=== PATIENT | male | born 1980 | race Caucasian/White ===

== ENCOUNTER 2022-01-22 18:10 | Observation (INO) ==
--- NOTE | 2022-01-22 18:35 | ED.PDOC ---
General <FRANCHESCA ADAMS MD - Last Filed: 01/22/22 18:35> ED Provider: Dr. FRANCHESCA BHANDARI Chief Complaint: Abdominal Pain Stated Complaint: im hurting Time Seen by Provider: 01/22/22 18:33 Mode of Arrival: Walk-In Information Source: Patient and Family Exam Limitations: No limitations Primary Care Provider: NANO FLOREZ Nursing and Triage Documentation Reviewed and Agree: Yes Does patient meet sepsis criteria?: No System Inflammatory Response Syndrome: Not Applicable Sepsis Protocol: For patient's 13 years and over: Temp is 96.8 and below OR 101 and greater Pulse >90 BPM Resp >20/minute Acutely Altered Mental Status Are patient's symptoms suggestive of a new infection, such as: -Pneumonia -Skin, Soft Tissue -Endocarditis -UTI -Bone, Joint Infection -Implantable Device -Acute Abdominal Infection -Wound Infection -Meningitis -Blood Stream Catheter Infection -Unknown GI Complaint Exam <FRANCHESCA ADAMS MD - Last Filed: 01/22/22 18:35> Abdominal Pain Complaint/Exam Onset: Gradual Duration: several hours Symptoms Are: Still present Timing: Constant Initial Severity: Mild Current Severity: Moderate Location of Pain: Diffuse Radiates To: Reports Flank Character: Reports Dull, Aching and Cramping Aggravating: Reports None Alleviating: Reports None Associated Signs and Symptoms: Reports Back pain and Constipation Abdominal Findings: Present None Differential Diagnoses: Constipation, Diverticulitis and Pancreatitis Quality Indicator For Non-Traumatic Chest Pain/Syncope: EKG Performed Review of Systems <FRANCHESCA ADAMS MD - Last Filed: 01/22/22 18:35> Review Of Systems Constitutional: Reports No symptoms Eyes: Reports No symptoms Ears, Nose, Mouth, Throat: Reports No symptoms Respiratory: Reports No symptoms Cardiac: Reports No symptoms GI: Reports Abdominal pain : Reports No symptoms Musculoskeletal: Reports No symptoms Skin: Reports No symptoms Neurological: Reports No symptoms Endocrine: Reports No symptoms Hematologic/Lymphatic: Reports No symptoms All Other Systems: Reviewed and Negative PFSH <FRANCHESCA ADAMS MD - Last Filed: 01/22/22 18:35> Medical History (Updated 01/23/22 @ 00:22 by ALLY LOZA RN) Hemorrhoids with complication Kidney calculus Family History (Updated 01/23/22 @ 00:26 by ALLY LOZA RN) FATHER Diabetes CAD (coronary artery disease) CHF (congestive heart failure) UNCLE CAD (coronary artery disease) Mother Cancer Social History (Updated 01/23/22 @ 00:19 by ALLY LOZA RN) Smoking and tobacco status: Current some day smoker Tobacco: How many years used: 25 Quit status: considering quitting Surgical History (Updated 01/23/22 @ 00:22 by ALLY LOZA RN) History of exploratory laparotomy History of hemorrhoidectomy Physical Exam <FRANCHESCA ADAMS MD - Last Filed: 01/22/22 18:35> Physical Exam Appearance: Reports Well-appearing Ill-appearing: Not Applicable Pain Distress: Not Applicable Eyes: Reports DYLAN, EOMI and Conjunctiva clear ENT: Reports Ears normal, Nose normal and Oropharynx normal Neck: Supple Respiratory: Reports Airway patent, Breath sounds clear and Breath sounds equal Cardiovascular: Reports RRR, Pulses normal and No rub GI/: Reports Soft, Nontender and No masses Musculoskeletal: Reports Normal strength, ROM intact and No edema Skin: Reports Warm, Dry and Normal color Neurological: Reports Sensation intact, Motor intact, Reflexes intact, Cranial nerves intact, Alert and Oriented Psychiatric: Reports Affect appropriate and Mood appropriate <KEYSHAWN LATHAM - Last Filed: 01/23/22 04:26> EKG Interpretation Time of EKG #1: 19:25 Rate: Normal Rhythm: Sinus Ectopy: None [place]: NL ST Segment: Other Interpretation: t wave inversion II and AVF / initial trop neg / no CP Time of EKG #2: 21:48 Rate: Normal Rhythm: Sinus Ectopy: None [place]: NL ST Segment: Other EKG Interpretation: T wave inversion III and avf consider II /second trop neg / no cp / no pr <KEYSHAWN LATHAM - Last Filed: 01/23/22 04:26> Critical Care Note Total Critical Care Time (mins): 20 Course <FRANCHESCA ADAMS MD - Last Filed: 01/22/22 18:35> Course Hematology/Chemistry: 01/22/22 18:46 01/22/22 18:46 Orders, Labs, Meds: Lab Review 01/22/22 01/22/22 01/22/22 18:46 18:46 18:50 WBC 12.98 H RBC 4.99 Hgb 13.8 L Hct 41.8 L MCV 83.8 MCH 27.7 MCHC 33.0 RDW Coeff of Fanta 13.2 Plt Count 250 Immature Gran % (Auto) 0.3 Neut % (Auto) 64.8 Lymph % (Auto) 23.9 [place] % (Auto) 7.3 Eos % (Auto) 3.0 Baso % (Auto) 0.7 Neut # (Auto) 8.4 H Lymph # (Auto) 3.1 [place] # (Auto) 1.0 Eos # (Auto) 0.4 Baso # (Auto) 0.1 Immature Gran # (Auto) 0.0 ESR 9 Sodium 141.0 Potassium 3.78 Chloride 107.2 H Carbon Dioxide 20.3 L Anion Gap 17.28 BUN 12.4 Creatinine 1.12 H Estimated GFR (MDRD) 72.00 BUN/Creatinine Ratio 11.07 Glucose 99.9 Calcium 9.58 Total Bilirubin 0.48 AST 32.5 ALT 20.9 Alkaline Phosphatase 79.3 Troponin I < 0.012 Total Protein 8.15 Albumin 5.11 H Globulin 3.04 Albumin/Globulin Ratio 1.68 Amylase 68.8 Lipase 51.5 Urine Color Yellow Urine Clarity Clear Urine pH 5.5 Ur Specific [place] >=1.030 Urine Protein Negative Urine Glucose (UA) Negative Urine Ketones Negative Urine Blood 2+ H Urine Nitrite Negative Urine Bilirubin Negative Urine Urobilinogen 0.2 Ur Leukocyte Esterase Negative Urine Microscopic RBC 5-10 Ur Squamous Epith Cells Not present Urine Opiates Screen Ur Oxycodone Screen Urine Methadone Screen Ur Propoxyphene Screen Ur Barbiturates Screen U Tricyclic Antidepress Ur Phencyclidine Scrn Ur Amphetamine Screen U Methamphetamines Scrn U Benzodiazepines Scrn Urine Cocaine Screen U Cannabinoids Screen Adenovirus (PCR) B. pertussis DNA (PCR) B.parapertussis DNA PCR C. pneumoniae DNA (PCR) Coronavirus OC43 (PCR) Coronavirus HKU1 (PCR) Coronavirus 229E (PCR) Coronavirus NL63 (PCR) Human Metapneumovir PCR Influenza Type A (PCR) Influenza B (RT-PCR) M. pneumoniae (PCR) Parainfluenza 1 (PCR) Parainfluenza 2 (PCR) Parainfluenza 3 (PCR) Parainfluenza 4 (PCR) RSV (PCR) Entero/Rhino (PCR) SARS-CoV-2 (PCR) 01/22/22 01/22/22 01/22/22 20:20 21:40 22:30 WBC RBC Hgb Hct MCV MCH MCHC RDW Coeff of Fanta Plt Count Immature Gran % (Auto) Neut % (Auto) Lymph % (Auto) [place] % (Auto) Eos % (Auto) Baso % (Auto) Neut # (Auto) Lymph # (Auto) [place] # (Auto) Eos # (Auto) Baso # (Auto) Immature Gran # (Auto) ESR Sodium Potassium Chloride Carbon Dioxide Anion Gap BUN Creatinine Estimated GFR (MDRD) BUN/Creatinine Ratio Glucose Calcium Total Bilirubin AST ALT Alkaline Phosphatase Troponin I < 0.012 Total Protein Albumin Globulin Albumin/Globulin Ratio Amylase Lipase Urine Color Urine Clarity Urine pH Ur Specific [place] Urine Protein Urine Glucose (UA) Urine Ketones Urine Blood Urine Nitrite Urine Bilirubin Urine Urobilinogen Ur Leukocyte Esterase Urine Microscopic RBC Ur Squamous Epith Cells Urine Opiates Screen Negative Ur Oxycodone Screen Negative Urine Methadone Screen Positive H Ur Propoxyphene Screen Negative Ur Barbiturates Screen Negative U Tricyclic Antidepress Negative Ur Phencyclidine Scrn Negative Ur Amphetamine Screen Negative U Methamphetamines Scrn Negative U Benzodiazepines Scrn Positive H Urine Cocaine Screen Negative U Cannabinoids Screen Negative Adenovirus (PCR) Not detected B. pertussis DNA (PCR) Not detected B.parapertussis DNA PCR Not detected C. pneumoniae DNA (PCR) Not detected Coronavirus OC43 (PCR) Not detected Coronavirus HKU1 (PCR) Not detected Coronavirus 229E (PCR) Not detected Coronavirus NL63 (PCR) Not detected Human Metapneumovir PCR Not detected Influenza Type A (PCR) Not detected Influenza B (RT-PCR) Not detected M. pneumoniae (PCR) Not detected Parainfluenza 1 (PCR) Not detected Parainfluenza 2 (PCR) Not detected Parainfluenza 3 (PCR) Not detected Parainfluenza 4 (PCR) Not detected RSV (PCR) Not detected Entero/Rhino (PCR) Not detected SARS-CoV-2 (PCR) Not detected Orders Category Date Time Status PLACE PATIENT OBSERVATION .TO MEDSURG (MONITORED BED ADMISSION 01/22/22 23:03 Active ) EKG-(ED ONLY) Stat CARDIO 01/22/22 18:35 Completed EKG-(IP & OP ONLY) DAILY CARDIO 01/23/22 06:00 Ordered EKG-(IP & OP ONLY) DAILY CARDIO 01/24/22 06:00 Ordered ACTIVITY .BR with BRP CARE 01/22/22 23:03 Active INTAKE & OUTPUT Q8HR CARE 01/22/22 23:03 Active NPO REMINDER: IMAGING ONCE CARE 01/22/22 18:30 Completed TELEMETRY MONITORING TELE CARE 01/22/22 23:04 Active VITAL SIGNS Q4HR CARE 01/22/22 23:06 Active VITAL SIGNS Q8HR CARE 01/22/22 23:03 Completed CONSULT PHYSICIAN [PHYSICIAN CONSULTATION] [CONS] CONSULTS 01/22/22 23:17 Or dered Routine CARDIAC DIET DIETARY 01/22/22 Breakfast Ordered ED IV/MEDIPORT/POWERPORT .ONCE EMERGENCY 01/22/22 18:30 Active AMYLASE Stat LAB 01/22/22 18:46 Completed CBC W/ AUTO DIFF Stat LAB 01/22/22 18:46 Completed COMPREHENSIVE METABOLIC PANEL Stat LAB 01/22/22 18:46 Completed ESR Stat LAB 01/22/22 18:46 Completed LIPASE Stat LAB 01/22/22 18:46 Completed RESPIRATORY PANEL 2.1 (PCR) Stat LAB 01/22/22 22:30 Completed THYROID PANEL WITH TSH Routine LAB 01/23/22 06:00 Ordered TROPONIN I Q8H LAB 01/23/22 05:15 Ordered TROPONIN I Q8H LAB 01/23/22 13:15 Ordered TROPONIN I Stat LAB 01/22/22 18:46 Completed TROPONIN I Stat LAB 01/22/22 21:40 Completed URINALYSIS C & S IF INDICATED Stat LAB 01/22/22 18:50 Completed URINE DRUG SCREEN (RAPID FOR ED) [DRUG SCREEN, URINE, LAB 01/22/22 20:20 Completed RAPID] Stat 0.9 % Sodium Chloride [Saline Flush] MEDS 01/22/22 18:30 Active 1 syr IVF PRN PRN Alprazolam [Xanax] MEDS 01/22/22 23:22 Active 1 mg PO TID PRN Aspirin [Aspirin Chewable] MEDS 01/22/22 19:41 Discontinued 324 mg PO ONCE ONE Aspirin [Aspirin Chewable] MEDS 01/23/22 17:00 Once 324 mg PO ONCE ONE Carisoprodol [Soma] MEDS 01/22/22 23:22 Active 350 mg PO QID PRN Enoxaparin Sodium [Lovenox] MEDS 01/22/22 23:17 Discontinued 40 mg SUBCUT ONCE ONE Fenofibrate [Triglide] MEDS 01/23/22 09:00 Active 160 mg PO DAILY Fluoxetine HCl [Prozac] MEDS 01/23/22 09:00 Active 20 mg PO DAILY Ketorolac Tromethamine [Toradol] MEDS 01/22/22 19:56 Discontinued 30 mg IVP ONCE STA Naloxone HCl [Narcan] MEDS 01/22/22 23:34 Active 0.2 mg IVP ONCE PRN Olanzapine [Zyprexa] MEDS 01/22/22 23:30 Discontinued 15 mg PO BEDTIME Pregabalin [Lyrica] MEDS 01/22/22 23:22 Active 100 mg PO BID PRN Sodium Chloride 0.9% [Sodium Chloride] 500 ml MEDS 01/22/22 19:41 Discontinued IV BOLUS linaclotide [Linzess] MEDS 01/23/22 09:00 Pending 185 mcg PO DAILY RESUSCITATION STATUS Routine OTHERS 01/22/22 23:[address] ABDOMEN/PELVIS W/WO CONTRAS Stat RADS 01/22/22 18:30 Completed Medications Generic Name Dose Route Start Last Admin Trade Name Freq PRN Reason Stop Dose Admin Alprazolam 1 mg 01/22/22 23:22 01/23/22 01:29 Alprazolam 0.5 Mg Tablet PO 1 mg TID PRN Administration Anxiety Aspirin 324 mg 01/23/22 17:00 Aspirin 81 Mg Tab.Chew PO 01/23/22 17:01 ONCE ONE Carisoprodol 350 mg 01/22/22 23:22 01/23/22 01:28 Carisoprodol 350 Mg Tablet PO 350 mg QID PRN Administration Mild Pain Fenofibrate 160 mg 01/23/22 09:00 Fenofibrate 160 Mg Tablet PO DAILY [facility]ETH Fluoxetine HCl 20 mg 01/23/22 09:00 Fluoxetine Hcl 20 Mg Capsule PO DAILY EL[facility]ETH Naloxone HCl 0.2 mg 01/22/22 23:34 Naloxone Hcl 0.4 Mg/Ml Vial IVP ONCE PRN altered mental status / difficul;t to arouse Non-Formulary Medication 185 mcg 01/23/22 09:00 Linaclotide [Linzess] PO DAILY ELIZABETH Olanzapine 15 mg 01/23/22 01:30 01/23/22 01:31 Olanzapine 10 Mg Tablet PO 15 mg BEDTIME ELIZABETH Administration Pregabalin 100 mg 01/22/22 23:22 01/23/22 01:27 Pregabalin 50 Mg Capsule PO 100 mg BID PRN Administration Mild Pain Sodium Chloride 1 syr 01/22/22 18:30 0.9% Sodium Chloride 10 Ml Disp.Syrin IVF PRN PRN To flush IV Temazepam 30 mg 01/23/22 01:00 01/23/22 01:41 Temazepam 15 Mg Capsule PO 30 mg BEDTIME ELIZABETH Administration Discontinued Medications Generic Name Dose Route Start Last Admin Trade Name Freq PRN Reason Stop Dose Admin Aspirin 324 mg 01/22/22 19:41 01/22/22 19:48 Aspirin 81 Mg Tab.Chew PO 01/22/22 19:42 324 mg ONCE ONE Administration Enoxaparin Sodium 40 mg 01/22/22 23:17 01/22/22 23:46 Enoxaparin Sodium 40 Mg/0.4 Ml Syr SUBCUT 01/22/22 23:18 40 mg ONCE ONE Administration Sodium Chloride 500 mls @ 500 mls/hr 01/22/22 19:41 01/22/22 19:48 Sodium Chloride IV 01/22/22 20:40 500 mls/hr BOLUS STA Administration Ketorolac Tromethamine 30 mg 01/22/22 19:56 01/22/22 20:08 Ketorolac Tromethamine 30 Mg/Ml Vial IVP 01/22/22 19:57 30 mg ONCE STA Administration Methadone HCl 70 mg 01/23/22 01:00 Methadone Hcl 10 Mg Tablet PO Q8HR [facility] Methadone HCl 70 mg 01/23/22 01:12 01/23/22 01:25 Methadone Hcl 10 Mg Tablet PO 01/23/22 01:13 70 mg ONCE ONE Administration Olanzapine 15 mg 01/22/22 23:30 Olanzapine 10 Mg Tablet PO BEDTIME [facility] Olanzapine 15 mg 01/23/22 02:00 Olanzapine 10 Mg Tablet PO BEDTIME [facility] Vital Signs: Temp Pulse Resp BP Pulse Ox 01/22/22 23:24 73 20 123/77 99 01/22/22 20:20 62 122/54 L 01/22/22 18:15 98.5 F 86 22 155/93 H 95 <KEYSHAWN LATHAM - Last Filed: 01/23/22 04:26> Course Orders, Labs, Meds: Lab Review 01/22/22 01/22/22 01/22/22 18:46 18:46 18:50 WBC 12.98 H RBC 4.99 Hgb 13.8 L Hct 41.8 L MCV 83.8 MCH 27.7 MCHC 33.0 RDW Coeff of Fanta 13.2 Plt Count 250 Immature Gran % (Auto) 0.3 Neut % (Auto) 64.8 Lymph % (Auto) 23.9 [place] % (Auto) 7.3 Eos % (Auto) 3.0 Baso % (Auto) 0.7 Neut # (Auto) 8.4 H Lymph # (Auto) 3.1 [place] # (Auto) 1.0 Eos # (Auto) 0.4 Baso # (Auto) 0.1 Immature Gran # (Auto) 0.0 ESR 9 Sodium 141.0 Potassium 3.78 Chloride 107.2 H Carbon Dioxide 20.3 L Anion Gap 17.28 BUN 12.4 Creatinine 1.12 H Estimated GFR (MDRD) 72.00 BUN/Creatinine Ratio 11.07 Glucose 99.9 Calcium 9.58 Total Bilirubin 0.48 AST 32.5 ALT 20.9 Alkaline Phosphatase 79.3 Troponin I < 0.012 Total Protein 8.15 Albumin 5.11 H Globulin 3.04 Albumin/Globulin Ratio 1.68 Amylase 68.8 Lipase 51.5 Urine Color Yellow Urine Clarity Clear Urine pH 5.5 Ur Specific [place] >=1.030 Urine Protein Negative Urine Glucose (UA) Negative Urine Ketones Negative Urine Blood 2+ H Urine Nitrite Negative Urine Bilirubin Negative Urine Urobilinogen 0.2 Ur Leukocyte Esterase Negative Urine Microscopic RBC 5-10 Ur Squamous Epith Cells Not present Urine Opiates Screen Ur Oxycodone Screen Urine Methadone Screen Ur Propoxyphene Screen Ur Barbiturates Screen U Tricyclic Antidepress Ur Phencyclidine Scrn Ur Amphetamine Screen U Methamphetamines Scrn U Benzodiazepines Scrn Urine Cocaine Screen U Cannabinoids Screen Adenovirus (PCR) B. pertussis DNA (PCR) B.parapertussis DNA PCR C. pneumoniae DNA (PCR) Coronavirus OC43 (PCR) Coronavirus HKU1 (PCR) Coronavirus 229E (PCR) Coronavirus NL63 (PCR) Human Metapneumovir PCR Influenza Type A (PCR) Influenza B (RT-PCR) M. pneumoniae (PCR) Parainfluenza 1 (PCR) Parainfluenza 2 (PCR) Parainfluenza 3 (PCR) Parainfluenza 4 (PCR) RSV (PCR) Entero/Rhino (PCR) SARS-CoV-2 (PCR) 01/22/22 01/22/22 01/22/22 20:20 21:40 22:30 WBC RBC Hgb Hct MCV MCH MCHC RDW Coeff of Fanta Plt Count Immature Gran % (Auto) Neut % (Auto) Lymph % (Auto) [place] % (Auto) Eos % (Auto) Baso % (Auto) Neut # (Auto) Lymph # (Auto) [place] # (Auto) Eos # (Auto) Baso # (Auto) Immature Gran # (Auto) ESR Sodium Potassium Chloride Carbon Dioxide Anion Gap BUN Creatinine Estimated GFR (MDRD) BUN/Creatinine Ratio Glucose Calcium Total Bilirubin AST ALT Alkaline Phosphatase Troponin I < 0.012 Total Protein Albumin Globulin Albumin/Globulin Ratio Amylase Lipase Urine Color Urine Clarity Urine pH Ur Specific [place] Urine Protein Urine Glucose (UA) Urine Ketones Urine Blood Urine Nitrite Urine Bilirubin Urine Urobilinogen Ur Leukocyte Esterase Urine Microscopic RBC Ur Squamous Epith Cells Urine Opiates Screen Negative Ur Oxycodone Screen Negative Urine Methadone Screen Positive H Ur Propoxyphene Screen Negative Ur Barbiturates Screen Negative U Tricyclic Antidepress Negative Ur Phencyclidine Scrn Negative Ur Amphetamine Screen Negative U Methamphetamines Scrn Negative U Benzodiazepines Scrn Positive H Urine Cocaine Screen Negative U Cannabinoids Screen Negative Adenovirus (PCR) Not detected B. pertussis DNA (PCR) Not detected B.parapertussis DNA PCR Not detected C. pneumoniae DNA (PCR) Not detected Coronavirus OC43 (PCR) Not detected Coronavirus HKU1 (PCR) Not detected Coronavirus 229E (PCR) Not detected Coronavirus NL63 (PCR) Not detected Human Metapneumovir PCR Not detected Influenza Type A (PCR) Not detected Influenza B (RT-PCR) Not detected M. pneumoniae (PCR) Not detected Parainfluenza 1 (PCR) Not detected Parainfluenza 2 (PCR) Not detected Parainfluenza 3 (PCR) Not detected Parainfluenza 4 (PCR) Not detected RSV (PCR) Not detected Entero/Rhino (PCR) Not detected SARS-CoV-2 (PCR) Not detected Orders Category Date Time Status PLACE PATIENT OBSERVATION .TO MEDSURG (MONITORED BED ADMISSION 01/22/22 23:03 Active ) EKG-(ED ONLY) Stat CARDIO 01/22/22 18:35 Completed EKG-(IP & OP ONLY) DAILY CARDIO 01/23/22 06:00 Ordered EKG-(IP & OP ONLY) DAILY CARDIO 01/24/22 06:00 Ordered ACTIVITY .BR with BRP CARE 01/22/22 23:03 Active INTAKE & OUTPUT Q8HR CARE 01/22/22 23:03 Active NPO REMINDER: IMAGING ONCE CARE 01/22/22 18:30 Completed TELEMETRY MONITORING TELE CARE 01/22/22 23:04 Active VITAL SIGNS Q4HR CARE 01/22/22 23:06 Active VITAL SIGNS Q8HR CARE 01/22/22 23:03 Completed CONSULT PHYSICIAN [PHYSICIAN CONSULTATION] [CONS] CONSULTS 01/22/22 23:17 Ordered Routine CARDIAC DIET DIETARY 01/22/22 Breakfast Ordered ED IV/MEDIPORT/POWERPORT .ONCE EMERGENCY 01/22/22 18:30 Active AMYLASE Stat LAB 01/22/22 18:46 Completed CBC W/ AUTO DIFF Stat LAB 01/22/22 18:46 Completed COMPREHENSIVE METABOLIC PANEL Stat LAB 01/22/22 18:46 Completed ESR Stat LAB 01/22/22 18:46 Completed LIPASE Stat LAB 01/22/22 18:46 Completed RESPIRATORY PANEL 2.1 (PCR) Stat LAB 01/22/22 22:30 Completed THYROID PANEL WITH TSH Routine LAB 01/23/22 06:00 Ordered TROPONIN I Q8H LAB 01/23/22 05:15 Ordered TROPONIN I Q8H LAB 01/23/22 13:15 Ordered TROPONIN I Stat LAB 01/22/22 18:46 Completed TROPONIN I Stat LAB 01/22/22 21:40 Completed URINALYSIS C & S IF INDICATED Stat LAB 01/22/22 18:50 Completed URINE DRUG SCREEN (RAPID FOR ED) [DRUG SCREEN, URINE, LAB 01/22/22 20:20 Completed RAPID] Stat 0.9 % Sodium Chloride [Saline Flush] MEDS 01/22/22 18:30 Active 1 syr IVF PRN PRN Alprazolam [Xanax] MEDS 01/22/22 23:22 Active 1 mg PO TID PRN Aspirin [Aspirin Chewable] MEDS 01/22/22 19:41 Discontinued 324 mg PO ONCE ONE Aspirin [Aspirin Chewable] MEDS 01/23/22 17:00 Once 324 mg PO ONCE ONE Carisoprodol [Soma] MEDS 01/22/22 23:22 Active 350 mg PO QID PRN Enoxaparin Sodium [Lovenox] MEDS 01/22/22 23:17 Discontinued 40 mg SUBCUT ONCE ONE Fenofibrate [Triglide] MEDS 01/23/22 09:00 Active 160 mg PO DAILY Fluoxetine HCl [Prozac] MEDS 01/23/22 09:00 Active 20 mg PO DAILY Ketorolac Tromethamine [Toradol] MEDS 01/22/22 19:56 Discontinued 30 mg IVP ONCE STA Naloxone HCl [Narcan] MEDS 01/22/22 23:34 Active 0.2 mg IVP ONCE PRN Olanzapine [Zyprexa] MEDS 01/22/22 23:30 Discontinued 15 mg PO BEDTIME Pregabalin [Lyrica] MEDS 01/22/22 23:22 Active 100 mg PO BID PRN Sodium Chloride 0.9% [Sodium Chloride] 500 ml MEDS 01/22/22 19:41 Discontinued IV BOLUS linaclotide [Linzess] MEDS 01/23/22 09:00 Pending 185 mcg PO DAILY RESUSCITATION STATUS Routine OTHERS 01/22/22 23:[address] ABDOMEN/PELVIS W/WO CONTRAS Stat RADS 01/22/22 18:30 Completed Medications Generic Name Dose Route Start Last Admin Trade Name Freq PRN Reason Stop Dose Admin Alprazolam 1 mg 01/22/22 23:22 01/23/22 01:29 Alprazolam 0.5 Mg Tablet PO 1 mg TID PRN Administration Anxiety Aspirin 324 mg 01/23/22 17:00 Aspirin 81 Mg Tab.Chew PO 01/23/22 17:01 ONCE ONE Carisoprodol 350 mg 01/22/22 23:22 01/23/22 01:28 Carisoprodol 350 Mg Tablet PO 350 mg QID PRN Administration Mild Pain Fenofibrate 160 mg 01/23/22 09:00 Fenofibrate 160 Mg Tablet PO DAILY ELIZABETH Fluoxetine HCl 20 mg 01/23/22 09:00 Fluoxetine Hcl 20 Mg Capsule PO DAILY [facility] Naloxone HCl 0.2 mg 01/22/22 23:34 Naloxone Hcl 0.4 Mg/Ml Vial IVP ONCE PRN altered mental status / difficul;t to arouse Non-Formulary Medication 185 mcg 01/23/22 09:00 Linaclotide [Linzess] PO DAILY ELIZABETH Olanzapine 15 mg 01/23/22 01:30 01/23/22 01:31 Olanzapine 10 Mg Tablet PO 15 mg BEDTIME ELIZABETH Administration Pregabalin 100 mg 01/22/22 23:22 01/23/22 01:27 Pregabalin 50 Mg Capsule PO 100 mg BID PRN Administration Mild Pain Sodium Chloride 1 syr 01/22/22 18:30 0.9% Sodium Chloride 10 Ml Disp.Syrin IVF PRN PRN To flush IV Temazepam 30 mg 01/23/22 01:00 01/23/22 01:41 Temazepam 15 Mg Capsule PO 30 mg BEDTIME ELIZABETH Administration Discontinued Medications Generic Name Dose Route Start Last Admin Trade Name Freq PRN Reason Stop Dose Admin Aspirin 324 mg 01/22/22 19:41 01/22/22 19:48 Aspirin 81 Mg Tab.Chew PO 01/22/22 19:42 324 mg ONCE ONE Administration Enoxaparin Sodium 40 mg 01/22/22 23:17 01/22/22 23:46 Enoxaparin Sodium 40 Mg/0.4 Ml Syr SUBCUT 01/22/22 23:18 40 mg ONCE ONE Administration Sodium Chloride 500 mls @ 500 mls/hr 01/22/22 19:41 01/22/22 19:48 Sodium Chloride IV 01/22/22 20:40 500 mls/hr BOLUS STA Administration Ketorolac Tromethamine 30 mg 01/22/22 19:56 01/22/22 20:08 Ketorolac Tromethamine 30 Mg/Ml Vial IVP 01/22/22 19:57 30 mg ONCE STA Administration Methadone HCl 70 mg 01/23/22 01:00 Methadone Hcl 10 Mg Tablet PO Q8HR ELIZABETH Methadone HCl 70 mg 01/23/22 01:12 01/23/22 01:25 Methadone Hcl 10 Mg Tablet PO 01/23/22 01:13 70 mg ONCE ONE Administration Olanzapine 15 mg 01/22/22 23:30 Olanzapine 10 Mg Tablet PO BEDTIME ELIZABETH Olanzapine 15 mg 01/23/22 02:00 Olanzapine 10 Mg Tablet PO BEDTIME ELIZABETH SBAR from Dr Bhandari at shift change. EKG ordered and completed - T wave abn III and AVF with no hx cardiac nor cp - trop ordered neg. Pt deniues CP - had suprapuvic radiating to the rt flank . No prior to compare with Add asa, 500ml saline for elevated sp gravity , repeat trop in 3 hrs , Toradol for pain with hx at [place] of suboxone. No hx renal failure nor allergy to meds CT - suggests recent;y passed rt ureteral stone 3 mm in bladder Vital Signs: Temp Pulse Resp BP Pulse Ox 01/22/22 23:24 73 20 123/77 99 01/22/22 20:20 62 122/54 L 01/22/22 18:15 98.5 F 86 22 155/93 H 95 pt with some pain remaining given toradol. Is in a methadone program for chronic pain through [facility] at a trusted level requiring only once a month visit. No hx of cardiac no prior ekg here. Some right ureteral dilatation and at time of admission to observation may have passed stone. Pt didnmt want to be transferred. I contacted Dr Woodward who will consult Monday regarding EKG finding ( appreciated ) and ED will place pt under our care . To add TSH panel and lipids for am. Pt has no contraindication to asa and lovenox. Discharge Plan Discharge Patient Disposition: PLACED OBSERVATION Discharge Problem: Kidney calculus, Abnormal ECG ED Provider: KEYSHAWN LATHAM Condition: Good <FRANCHESCA ADAMS MD - Last Filed: 01/22/22 18:35> Physician Progress Note: []
[2022-01-22 18:53] LABS: BASOPHILS # (AUTO) 0.1 K/uL (0-0.2); BASOPHILS % (AUTO) 0.7 % (0.0-3.0); EOSINOPHILS # (AUTO) 0.4 K/ul (0.0-0.7); HEMATOCRIT 41.8 % (42.0-52.0); HEMOGLOBIN 13.8 g/dl (14.0-18.0); IMMATURE GRANULOCYTE % (AUTO) 0.3 % (0.0-5.0); LYMPHOCYTES # (AUTO) 3.1 K/uL (0.60-3.4); LYMPHOCYTES % (AUTO) 23.9 (10.0-50.0); MEAN CORPUSCULAR HEMOGLOBIN 27.7 pg (27.0-31.0); MEAN CORPUSCULAR VOLUME 83.8 fl (80.0-94.0); MONOCYTES % (AUTO) 7.3 (0-10); NEUTROPHILS # (AUTO) 8.4 K/ul (2.0-6.9); NEUTROPHILS % (AUTO) 64.8 % (42.2-75.2); PLATELET COUNT 250 10^3/uL (140-440); RDW COEFFICIENT OF VARIATION 13.2 % (11.6-14.8); RED BLOOD COUNT 4.99 10^6/ul (4.70-6.10); WHITE BLOOD COUNT 12.98 K/ul (4.2-10.2)
[2022-01-22 19:02] LABS: BILIRUBIN,URINE Negative (NEGATIVE); CLARITY,URINE Clear (CLEAR); COLOR,URINE Yellow (YELLOW); GLUCOSE, URINE (UA) Negative (NEGATIVE); KETONES,URINE Negative (NEGATIVE); LEUKOCYTE ESTERASE ,URINE Negative (NEGATIVE); NITRITE,URINE Negative (NEGATIVE); PH,URINE 5.5 (5-9); PROTEIN,URINE Negative (NEGATIVE); URINE, BLOOD 2+ (NEGATIVE); UROBILINOGEN,URINE 0.2 (0.2)
[2022-01-22 19:05] LABS: ALANINE AMINOTRANSFERASE 20.9 U/L (0-50); ALBUMIN 5.11 g/dL (3.5-5.0); ALKALINE PHOSPHATASE 79.3 U/L (38-126); AMYLASE 68.8 U/L (30-110); ASPARTATE AMINO TRANSFERASE 32.5 U/L (17-59); BILIRUBIN,TOTAL 0.48 mg/dL (0.2-1.3); BLOOD UREA NITROGEN 12.4 mg/dL (9-20); CALCIUM 9.58 mg/dL (8.4-10.2); CARBON DIOXIDE 20.3 mmol/L (22-30.0); CHLORIDE 107.2 mmol/L (98-107); CREATININE 1.12 mg/dL (0.60-1.10); GLUCOSE 99.9 mg/dL (74-106); LIPASE 51.5 U/L (23-300); POTASSIUM 3.78 mmol/L (3.5-5.1); TOTAL PROTEIN 8.15 g/dL (6.3-8.2)
[2022-01-22 19:10] LABS: SQUAMOUS EPITHELIAL CELL,UR NOT PRESENT (0-5)
[2022-01-22 19:17] LABS: TROPONIN I < 0.012 ng/ml (0.0000-0.120)
[2022-01-22 19:27] LABS: ERYTHROCYTE SEDIMENTATION RATE 9 mm/hr (0-15)
[2022-01-22] MEDS ORDERED: TORADOL IVP STA ×2 (19:41→19:56)
[2022-01-22] MEDS ORDERED: ASPIRIN CHEWABLE PO ONE (19:41)
[2022-01-22] MEDS ORDERED: SODIUM CHLORIDE 500 ML IV STA (19:41)
--- NOTE | 2022-01-22 19:54 | CT ---
Examination: CT of the abdomen pelvis without and with contrast. HISTORY: Abdominal pain. Flank pain. COMPARISON: None TECHNIQUE: 3 mm axial slices obtained from the lung base through pelvis both before and after admini stration of 75 ml of Omnipaque 350 intravenous contrast. Multiplanar reformats. FINDINGS: Multifocal intrarenal calculi bilaterally measuring up to 5 mm on the left and 4 mm on the right. No overt hydronephrosis. Trace pelvicaliectasis on the right as well as prominence of the r ight ureter but without visualized distal radiopaque calculus in the right ureter. Partially visualized heart without significant pericardial fluid or thickening. No pleural effusion. Elevated left hemidiaphragm. Dependent atelectatic changes. Gallbladder present without significant luminal distension or surrounding inflammatory changes. No b iliary ductal dilatation. Subcentimeter low density in the left liver, too small to characterize, statistically cyst. Remaining liver, spleen, adrenal, and pancreas are without significant abnormalities. There is subtl e delayed right nephrogram questioned. No significant surrounding inflammatory changes. Subcentimet er low density in the right kidney is too small to characterize. Bladder not significantly distended nor well evaluated. Probable dependent 3 mm calculus in the blad lluvia. There is no bowel obstruction or dilatation. No free fluid within the pelvis. Normal appendix. No lymphadenopathy. Body wall soft tissues are without significant abnormalities. Osseous structures are without significant abnormalities. IMPRESSION: Multifocal bilateral intrarenal nephrolithiasis measuring up to 4 mm on the right and 5 mm on the left. Slight distension of the right renal collecting system including the ureter with a 3 mm calculus note d dependently within the bladder. Finding may represent a recently passed right renal calculus. Cor relate clinically. No current obstructing calculus is seen. Questionable slight delayed nephrogram on the right could be due to recent mild obstruction. No surrounding inflammatory changes. Subcentimeter low . The CTs in the left liver and right kidney, too small to characterize, statistic ally cysts. No evidence of bowel obstruction or localized inflammatory changes in the abdomen or pelvis. All CT scans are performed using dose optimization techniques as appropriate to the performed exam an d include at least one of the following: Automated exposure control, adjustment of the mA and/or kV according t o size, and the use of iterative reconstruction technique.
[2022-01-22 20:35] LABS: AMPHETAMINE SCREEN,URINE NEGATIVE (NEGATIVE); BARBITURATE SCREEN,URINE NEGATIVE (NEGATIVE); BENZODIAZEPINES SCREEN,URINE POSITIVE (NEGATIVE); CANNABINOID SCREEN,URINE NEGATIVE (NEGATIVE); COCAIN SCREEN,URINE NEGATIVE (NEGATIVE); METHADONE URINE SCREEN POSITIVE (NEGATIVE); METHAMPHETAMINES SCREEN,URINE NEGATIVE (NEGATIVE); OPIATE SCREEN,URINE NEGATIVE (NEGATIVE); OXYCODONE URINE SCREEN NEGATIVE (NEGATIVE); PHENCYCLIDINE SCREEN,URINE NEGATIVE (NEGATIVE); PROPOXYPHENE URINE SCREEN NEGATIVE (NEGATIVE); TRICYCLIC ANTIDEPRESSANTS URIN NEGATIVE (NEGATIVE)
[2022-01-22] MEDS ORDERED: LOVENOX SUBCUT ONE (23:17)
[2022-01-22 23:21] LABS: ADENOVIRUS (PCR) NOT DETECTED (NOT DETECT); BORDETELLA PARAPERTUSSIS (PCR) NOT DETECTED (NOT DETECT); BORDETELLA PERTUSSIS (PCR) NOT DETECTED (NOT DETECT); CHLAMYDIA PNEUMONIAE (PCR) NOT DETECTED (NOT DETECT); CORONAVIRUS 229E (PCR) NOT DETECTED (NOT DETECT); CORONAVIRUS HKU1 (PCR) NOT DETECTED (NOT DETECT); CORONAVIRUS NL63 (PCR) NOT DETECTED (NOT DETECT); CORONAVIRUS OC43 (PCR) NOT DETECTED (NOT DETECT); HUMAN METAPNEUMOVIRUS (PCR) NOT DETECTED (NOT DETECT); HUMAN RHINOVIRUS/ENTEROV (PCR) NOT DETECTED (NOT DETECT); INFLUENZA B (PCR) NOT DETECTED (NOT DETECT); MYCOPLASMA PNEUMONIAE (PCR) NOT DETECTED (NOT DETECT); PARAINFLUENZA VIRUS 1 (PCR) NOT DETECTED (NOT DETECT); PARAINFLUENZA VIRUS 2 (PCR) NOT DETECTED (NOT DETECT); PARAINFLUENZA VIRUS 3 (PCR) NOT DETECTED (NOT DETECT); PARAINFLUENZA VIRUS 4 (PCR) NOT DETECTED (NOT DETECT); RESPIRATORY SYNCYTIAL V (PCR) NOT DETECTED (NOT DETECT); SARS_COV_2 (PCR) NOT DETECTED (NOT DETECT)
[2022-01-22] MEDS ORDERED: LYRICA PO PRN (23:22)
[2022-01-22] MEDS ORDERED: ZYPREXA PO SCH (23:30)
[2022-01-22] MEDS ORDERED: NARCAN IVP PRN (23:34)
[2022-01-23] MEDS ORDERED: RESTORIL PO SCH (01:00)
[2022-01-23] MEDS ORDERED: METHADONE PO SCH ×2 (01:00→09:00)
[2022-01-23 01:09] VITALS: BMI 31.2
[2022-01-23] MEDS ORDERED: METHADONE PO ONE (01:12)
[2022-01-23] MEDS: SOMA PO PRN ×2 (01:28→08:47)
[2022-01-23] MEDS: XANAX PO PRN ×2 (01:29→08:41)
[2022-01-23] MEDS ORDERED: ZYPREXA PO SCH ×2 (01:30→02:00)
--- NOTE | 2022-01-23 04:37 | PCM ---
Chief Complaint Chief Complaint: suprapubic discomfort radiating to right flank pain, History of Present Illness History of Present Illness: began earlier in the day .Presented to the ED and seen / evaluated by Dr Radford. later EKG result showed ST changes with neg troponin times two and ne chest pains . No comparison available and no cardiac history . Review of Systems Constitutional: Reports No symptoms; Denies Fever, Chills or Sweats Eyes: Denies No symptoms Ears: Denies No symptoms Nose: Denies No symptoms Throat: Denies No symptoms Mouth: Denies No symptoms Respiratory: Denies No symptoms Cardiovascular: Denies No symptoms Gastrointestinal: Reports Abdominal pain (suprapubic to right flank - know to have intrarenal stones ) Genitourinary: Reports other (new onset dribbling ); Denies testicular pain Musculoskeletal: Reports Other (baseline chronic msk pain ) Skin: Reports No symptoms, Rash, Pruritus, Lacerations, Wounds, Bruising and Other Immunology: Reports No symptoms Hematology: Reports No symptoms Endocrine: Reports No symptoms Psychiatric: Reports Sleeplessness Habits: Reports Substance use (participant in [facility] participant methadone program for chronic pain ); Denies Tobacco use or Alcohol use Allergies Allergies Allergy/AdvReac Type Severity Reaction Status Date / Time No Known Allergies Allergy Unverified 01/22/22 18:14 [facility] Medical History (Updated 01/23/22 @ 04:34 by KEYSHAWN LATHAM) Abnormal ECG Hemorrhoids with complication Kidney calculus Kidney calculus Surgical History (Updated 01/23/22 @ 00:22 by ALLY LOZA RN) History of exploratory laparotomy History of hemorrhoidectomy Family History (Updated 01/23/22 @ 00:26 by ALLY LOZA RN) FATHER Diabetes CAD (coronary artery disease) CHF (congestive heart failure) UNCLE CAD (coronary artery disease) Mother Cancer Social History (Updated 01/23/22 @ 00:19 by ALLY LOZA RN) Smoking and tobacco status: Current some day smoker Tobacco: How many years used: 25 Quit status: considering quitting Medications Medications: Medications Generic Name Dose Route Start Last Admin Trade Name Freq PRN Reason Stop Dose Admin Alprazolam 1 mg 01/22/22 23:22 01/23/22 01:29 Alprazolam 0.5 Mg Tablet PO 1 mg TID PRN Administration Anxiety Aspirin 324 mg 01/23/22 17:00 Aspirin 81 Mg Tab.Chew PO 01/23/22 17:01 ONCE ONE Carisoprodol 350 mg 01/22/22 23:22 01/23/22 01:28 Carisoprodol 350 Mg Tablet PO 350 mg QID PRN Administration Mild Pain Fenofibrate 160 mg 01/23/22 09:00 Fenofibrate 160 Mg Tablet PO DAILY ELIZABETH Fluoxetine HCl 20 mg 01/23/22 09:00 Fluoxetine Hcl 20 Mg Capsule PO DAILY ELIZABETH Naloxone HCl 0.2 mg 01/22/22 23:34 Naloxone Hcl 0.4 Mg/Ml Vial IVP ONCE PRN altered mental status / difficul;t to arouse Non-Formulary Medication 185 mcg 01/23/22 09:00 Linaclotide [Linzess] PO DAILY ELIZABETH Olanzapine 15 mg 01/23/22 01:30 01/23/22 01:31 Olanzapine 10 Mg Tablet PO 15 mg BEDTIME ELIZABETH Administration Pregabalin 100 mg 01/22/22 23:22 01/23/22 01:27 Pregabalin 50 Mg Capsule PO 100 mg BID PRN Administration Mild Pain Sodium Chloride 1 syr 01/22/22 18:30 0.9% Sodium Chloride 10 Ml Disp.Syrin IVF PRN PRN To flush IV Temazepam 30 mg 01/23/22 01:00 01/23/22 01:41 Temazepam 15 Mg Capsule PO 30 mg BEDTIME ELIZABETH Administration Body Composition Height: 5 ft 11 in Weight: 224 lb 5 oz Body Mass Index (BMI): 31.2 Vital Signs Temperature: 97.4 F Pulse Rate: 63 Respiratory Rate: 16 Blood Pressure: 123/77 O2 Sat by Pulse Oximetry: 99 Physical Examination Appearance: Reports Well-appearing (stone passed during admission to observation ) Ill-appearing: None Pain Distress: Mild Eyes: Reports DYLAN, EOMI and Conjunctiva clear ENT: Reports Ears normal, Nose normal and Oropharynx normal Neck: Supple Respiratory: Reports Airway patent, Breath sounds clear and Breath sounds equal Cardiovascular: Reports RRR, Pulses normal and No murmur GI/: Reports Soft and Other (mild residual flank soreness ) Musculoskeletal: Reports Normal strength Skin: Reports Warm, Dry and Normal color Neurological: Reports Sensation intact, Alert and Oriented Psychiatric: Reports Affect appropriate and Mood appropriate Lab/Tests/Diagnostic Imaging Lab/Tests/Diagnostic Imaging: Lab Review 01/22/22 01/22/22 01/22/22 18:46 18:46 18:50 WBC 12.98 H RBC 4.99 Hgb 13.8 L Hct 41.8 L MCV 83.8 MCH 27.7 MCHC 33.0 RDW Coeff of Fanta 13.2 Plt Count 250 Immature Gran % (Auto) 0.3 Neut % (Auto) 64.8 Lymph % (Auto) 23.9 Morton % (Auto) 7.3 Eos % (Auto) 3.0 Baso % (Auto) 0.7 Neut # (Auto) 8.4 H Lymph # (Auto) 3.1 Morton # (Auto) 1.0 Eos # (Auto) 0.4 Baso # (Auto) 0.1 Immature Gran # (Auto) 0.0 ESR 9 Sodium 141.0 Potassium 3.78 Chloride 107.2 H Carbon Dioxide 20.3 L Anion Gap 17.28 BUN 12.4 Creatinine 1.12 H Estimated GFR (MDRD) 72.00 BUN/Creatinine Ratio 11.07 Glucose 99.9 Calcium 9.58 Total Bilirubin 0.48 AST 32.5 ALT 20.9 Alkaline Phosphatase 79.3 Troponin I < 0.012 Total Protein 8.15 Albumin 5.11 H Globulin 3.04 Albumin/Globulin Ratio 1.68 Amylase 68.8 Lipase 51.5 Urine Color Yellow Urine Clarity Clear Urine pH 5.5 Ur Specific Peculiar >=1.030 Urine Protein Negative Urine Glucose (UA) Negative Urine Ketones Negative Urine Blood 2+ H Urine Nitrite Negative Urine Bilirubin Negative Urine Urobilinogen 0.2 Ur Leukocyte Esterase Negative Urine Microscopic RBC 5-10 Ur Squamous Epith Cells Not present Urine Opiates Screen Ur Oxycodone Screen Urine Methadone Screen Ur Propoxyphene Screen Ur Barbiturates Screen U Tricyclic Antidepress Ur Phencyclidine Scrn Ur Amphetamine Screen U Methamphetamines Scrn U Benzodiazepines Scrn Urine Cocaine Screen U Cannabinoids Screen Adenovirus (PCR) B. pertussis DNA (PCR) B.parapertussis DNA PCR C. pneumoniae DNA (PCR) Coronavirus OC43 (PCR) Coronavirus HKU1 (PCR) Coronavirus 229E (PCR) Coronavirus NL63 (PCR) Human Metapneumovir PCR Influenza Type A (PCR) Influenza B (RT-PCR) M. pneumoniae (PCR) Parainfluenza 1 (PCR) Parainfluenza 2 (PCR) Parainfluenza 3 (PCR) Parainfluenza 4 (PCR) RSV (PCR) Entero/Rhino (PCR) SARS-CoV-2 (PCR) 01/22/22 01/22/22 01/22/22 20:20 21:40 22:30 WBC RBC Hgb Hct MCV MCH MCHC RDW Coeff of Fanta Plt Count Immature Gran % (Auto) Neut % (Auto) Lymph % (Auto) Morton % (Auto) Eos % (Auto) Baso % (Auto) Neut # (Auto) Lymph # (Auto) Morton # (Auto) Eos # (Auto) Baso # (Auto) Immature Gran # (Auto) ESR Sodium Potassium Chloride Carbon Dioxide Anion Gap BUN Creatinine Estimated GFR (MDRD) BUN/Creatinine Ratio Glucose Calcium Total Bilirubin AST ALT Alkaline Phosphatase Troponin I < 0.012 Total Protein Albumin Globulin Albumin/Globulin Ratio Amylase Lipase Urine Color Urine Clarity Urine pH Ur Specific Peculiar Urine Protein Urine Glucose (UA) Urine Ketones Urine Blood Urine Nitrite Urine Bilirubin Urine Urobilinogen Ur Leukocyte Esterase Urine Microscopic RBC Ur Squamous Epith Cells Urine Opiates Screen Negative Ur Oxycodone Screen Negative Urine Methadone Screen Positive H Ur Propoxyphene Screen Negative Ur Barbiturates Screen Negative U Tricyclic Antidepress Negative Ur Phencyclidine Scrn Negative Ur Amphetamine Screen Negative U Methamphetamines Scrn Negative U Benzodiazepines Scrn Positive H Urine Cocaine Screen Negative U Cannabinoids Screen Negative Adenovirus (PCR) Not detected B. pertussis DNA (PCR) Not detected B.parapertussis DNA PCR Not detected C. pneumoniae DNA (PCR) Not detected Coronavirus OC43 (PCR) Not detected Coronavirus HKU1 (PCR) Not detected Coronavirus 229E (PCR) Not detected Coronavirus NL63 (PCR) Not detected Human Metapneumovir PCR Not detected Influenza Type A (PCR) Not detected Influenza B (RT-PCR) Not detected M. pneumoniae (PCR) Not detected Parainfluenza 1 (PCR) Not detected Parainfluenza 2 (PCR) Not detected Parainfluenza 3 (PCR) Not detected Parainfluenza 4 (PCR) Not detected RSV (PCR) Not detected Entero/Rhino (PCR) Not detected SARS-CoV-2 (PCR) Not detected Orders Category Date Time Status PLACE PATIENT OBSERVATION .TO MEDSURG (MONITORED BED ADMISSION 01/22/22 23:03 Active ) EKG-(ED ONLY) Stat CARDIO 01/22/22 18:35 Completed EKG-(IP & OP ONLY) DAILY CARDIO 01/23/22 06:00 Ordered EKG-(IP & OP ONLY) DAILY CARDIO 01/24/22 06:00 Ordered ACTIVITY .BR with BRP CARE 01/22/22 23:03 Active INTAKE & OUTPUT Q8HR CARE 01/22/22 23:03 Active NPO REMINDER: IMAGING ONCE CARE 01/22/22 18:30 Completed TELEMETRY MONITORING TELE CARE 01/22/22 23:04 Active VITAL SIGNS Q4HR CARE 01/22/22 23:06 Active VITAL SIGNS Q8HR CARE 01/22/22 23:03 Completed CONSULT PHYSICIAN [PHYSICIAN CONSULTATION] [CONS] CONSULTS 01/22/22 23:17 Ordered Routine CARDIAC DIET DIETARY 01/22/22 Breakfast Ordered ED IV/MEDIPORT/POWERPORT .ONCE EMERGENCY 01/22/22 18:30 Active AMYLASE Stat LAB 01/22/22 18:46 Completed CBC W/ AUTO DIFF Stat LAB 01/22/22 18:46 Completed COMPREHENSIVE METABOLIC PANEL Stat LAB 01/22/22 18:46 Completed ESR Stat LAB 01/22/22 18:46 Completed LIPASE Stat LAB 01/22/22 18:46 Completed LIPID PANEL Routine LAB 01/23/22 05:15 Ordered MAGNESIUM Routine LAB 01/23/22 05:15 Ordered RESPIRATORY PANEL 2.1 (PCR) Stat LAB 01/22/22 22:30 Completed THYROID PANEL WITH TSH Routine LAB 01/23/22 06:00 Ordered TROPONIN I Q8H LAB 01/23/22 05:15 Ordered TROPONIN I Q8H LAB 01/23/22 13:15 Ordered TROPONIN I Stat LAB 01/22/22 18:46 Completed TROPONIN I Stat LAB 01/22/22 21:40 Completed URINALYSIS C & S IF INDICATED Stat LAB 01/22/22 18:50 Completed URINE DRUG SCREEN (RAPID FOR ED) [DRUG SCREEN, URINE, LAB 01/22/22 20:20 Completed RAPID] Stat 0.9 % Sodium Chloride [Saline Flush] MEDS 01/22/22 18:30 Active 1 syr IVF PRN PRN Alprazolam [Xanax] MEDS 01/22/22 23:22 Active 1 mg PO TID PRN Aspirin [Aspirin Chewable] MEDS 01/22/22 19:41 Discontinued 324 mg PO ONCE ONE Aspirin [Aspirin Chewable] MEDS 01/23/22 17:00 Once 324 mg PO ONCE ONE Carisoprodol [Soma] MEDS 01/22/22 23:22 Active 350 mg PO QID PRN Enoxaparin Sodium [Lovenox] MEDS 01/22/22 23:17 Discontinued 40 mg SUBCUT ONCE ONE Fenofibrate [Triglide] MEDS 01/23/22 09:00 Active 160 mg PO DAILY Fluoxetine HCl [Prozac] MEDS 01/23/22 09:00 Active 20 mg PO DAILY Ketorolac Tromethamine [Toradol] MEDS 01/22/22 19:56 Discontinued 30 mg IVP ONCE STA Methadone HCl [Methadone] MEDS 01/23/22 01:12 Discontinued 70 mg PO ONCE ONE Methadone HCl [Methadone] MEDS 01/23/22 01:00 Discontinued 70 mg PO Q8HR Naloxone HCl [Narcan] MEDS 01/22/22 23:34 Active 0.2 mg IVP ONCE PRN Olanzapine [Zyprexa] MEDS 01/22/22 23:30 Discontinued 15 mg PO BEDTIME Olanzapine [Zyprexa] MEDS 01/23/22 01:30 Active 15 mg PO BEDTIME Olanzapine [Zyprexa] MEDS 01/23/22 02:00 Discontinued 15 mg PO BEDTIME Pregabalin [Lyrica] MEDS 01/22/22 23:22 Active 100 mg PO BID PRN Sodium Chloride 0.9% [Sodium Chloride] 500 ml MEDS 01/22/22 19:41 Discontinued IV BOLUS Temazepam [Restoril] MEDS 01/23/22 01:00 Active 30 mg PO BEDTIME linaclotide [Linzess] MEDS 01/23/22 09:00 Pending 185 mcg PO DAILY RESUSCITATION STATUS Routine OTHERS 01/22/22 23:[address] ABDOMEN/PELVIS W/WO CONTRAS Stat RADS 01/22/22 18:30 Completed Medications Generic Name Dose Route Start Last Admin Trade Name Freq PRN Reason Stop Dose Admin Alprazolam 1 mg 01/22/22 23:22 01/23/22 01:29 Alprazolam 0.5 Mg Tablet PO 1 mg TID PRN Administration Anxiety Aspirin 324 mg 01/23/22 17:00 Aspirin 81 Mg Tab.Chew PO 01/23/22 17:01 ONCE ONE Carisoprodol 350 mg 01/22/22 23:22 01/23/22 01:28 Carisoprodol 350 Mg Tablet PO 350 mg QID PRN Administration Mild Pain Fenofibrate 160 mg 01/23/22 09:00 Fenofibrate 160 Mg Tablet PO DAILY ELIZABETH Fluoxetine HCl 20 mg 01/23/22 09:00 Fluoxetine Hcl 20 Mg Capsule PO DAILY ELIZABETH Naloxone HCl 0.2 mg 01/22/22 23:34 Naloxone Hcl 0.4 Mg/Ml Vial IVP ONCE PRN altered mental status / difficul;t to arouse Non-Formulary Medication 185 mcg 01/23/22 09:00 Linaclotide [Linzess] PO DAILY ELIZABETH Olanzapine 15 mg 01/23/22 01:30 01/23/22 01:31 Olanzapine 10 Mg Tablet PO 15 mg BEDTIME ELIZABETH Administration Pregabalin 100 mg 01/22/22 23:22 01/23/22 01:27 Pregabalin 50 Mg Capsule PO 100 mg BID PRN Administration Mild Pain Sodium Chloride 1 syr 01/22/22 18:30 0.9% Sodium Chloride 10 Ml Disp.Syrin IVF PRN PRN To flush IV Temazepam 30 mg 01/23/22 01:00 01/23/22 01:41 Temazepam 15 Mg Capsule PO 30 mg BEDTIME ELIZABETH Administration Discontinued Medications Generic Name Dose Route Start Last Admin Trade Name Freq PRN Reason Stop Dose Admin Aspirin 324 mg 01/22/22 19:41 01/22/22 19:48 Aspirin 81 Mg Tab.Chew PO 01/22/22 19:42 324 mg ONCE ONE Administration Enoxaparin Sodium 40 mg 01/22/22 23:17 01/22/22 23:46 Enoxaparin Sodium 40 Mg/0.4 Ml Syr SUBCUT 01/22/22 23:18 40 mg ONCE ONE Administration Sodium Chloride 500 mls @ 500 mls/hr 01/22/22 19:41 01/22/22 19:48 Sodium Chloride IV 01/22/22 20:40 500 mls/hr BOLUS STA Administration Ketorolac Tromethamine 30 mg 01/22/22 19:56 01/22/22 20:08 Ketorolac Tromethamine 30 Mg/Ml Vial IVP 01/22/22 19:57 30 mg ONCE STA Administration Methadone HCl 70 mg 01/23/22 01:00 Methadone Hcl 10 Mg Tablet PO Q8HR ELIZABETH Methadone HCl 70 mg 01/23/22 01:12 01/23/22 01:25 Methadone Hcl 10 Mg Tablet PO 01/23/22 01:13 70 mg ONCE ONE Administration Olanzapine 15 mg 01/22/22 23:30 Olanzapine 10 Mg Tablet PO BEDTIME ELIZABETH Olanzapine 15 mg 01/23/22 02:00 Olanzapine 10 Mg Tablet PO BEDTIME ELIZABETH Plan Plan: 1 observation to ED - hospitalist service / pt declined transfer 2 cardiology consultation regarding ekg changes for Monday - 3 Lipid & TSH panel am 4 Serial troponin 5. Discussed with multimedia production assistant pharmacist - we can continue his home med methadone 70 mg po q 12 hrs along with others - I approved dose to be given at med floor and didnt allow the auto dose for 0900 due to time of evening dose.
[2022-01-23] MEDS ORDERED: SODIUM CHLORIDE 1,000 ML IV SCH (05:00)
[2022-01-23 05:16] LABS: HDL CHOLESTEROL 32.4 mg/dL (35-60); LDL CHOLESTEROL,CALCULATED 99 mmol/L; MAGNESIUM 1.96 mg/dL (1.6-2.3); TRIGLYCERIDES 118.3 mg/dL (0-150); VLDL CHOLESTEROL 24 mg/dL (2-30)
[2022-01-23 05:31] LABS: TROPONIN I < 0.012 ng/ml (0.0000-0.120)
[2022-01-23 06:56] LABS: BASOPHILS # (AUTO) 0.1 K/uL (0-0.2); BASOPHILS % (AUTO) 0.7 % (0.0-3.0); EOSINOPHILS # (AUTO) 0.3 K/ul (0.0-0.7); EOSINOPHILS % (AUTO) 2.8 % (0.0-7.0); HEMATOCRIT 36.7 % (42.0-52.0); HEMOGLOBIN 11.8 g/dl (14.0-18.0); IMMATURE GRANULOCYTE % (AUTO) 0.2 % (0.0-5.0); LYMPHOCYTES # (AUTO) 3.1 K/uL (0.60-3.4); LYMPHOCYTES % (AUTO) 31.9 (10.0-50.0); MEAN CORPUSCULAR HEMOGLOBIN 27.5 pg (27.0-31.0); MEAN CORPUSCULAR HGB CONC 32.2 (31.8-35.4); MEAN CORPUSCULAR VOLUME 85.5 fl (80.0-94.0); MONOCYTES # (AUTO) 0.7 K/uL (0.4-2.0); MONOCYTES % (AUTO) 6.7 (0-10); NEUTROPHILS # (AUTO) 5.7 K/ul (2.0-6.9); NEUTROPHILS % (AUTO) 57.7 % (42.2-75.2); PLATELET COUNT 215 10^3/uL (140-440); RDW COEFFICIENT OF VARIATION 13.6 % (11.6-14.8); RED BLOOD COUNT 4.29 10^6/ul (4.70-6.10); WHITE BLOOD COUNT 9.84 K/ul (4.2-10.2)
[2022-01-23 07:01] LABS: BLOOD UREA NITROGEN 13.5 mg/dL (9-20); CALCIUM 9.25 mg/dL (8.4-10.2); CARBON DIOXIDE 25.9 mmol/L (22-30.0); CHLORIDE 107.5 mmol/L (98-107); CREATININE 1.03 mg/dL (0.60-1.10); GLUCOSE 89.8 mg/dL (74-106); POTASSIUM 3.83 mmol/L (3.5-5.1); SODIUM 140.8 mmol/L (134.5-145)
[2022-01-23] MEDS ORDERED: TRIGLIDE PO SCH (09:00)
[2022-01-23] MEDS ORDERED: PROZAC PO SCH (09:00)
[2022-01-23] MEDS ORDERED: NON-FORMULARY MEDICATION (Linaclotide [Linzess] 145 mcg capsule) PO SCH (09:00)
[2022-01-23 10:49] VITALS: BP 105/58; TEMP 97.1
--- NOTE | 2022-01-23 15:25 | PCM.DC ---
Final Diagnosis: Passed ureteral stone, abnormal ekg---consult dr limon Physical Exam Appearance: Well-appearing Ill-appearing: None Pain Distress: None Eyes: DYLAN, EOMI and Conjunctiva clear ENT: Ears normal and Nose normal Neck: Supple Respiratory: Airway patent, Breath sounds clear and Breath sounds equal Cardiovascular: RRR, Pulses normal, No rub and No murmur GI/: Soft, Nontender, No masses and Bowel sounds normal Musculoskeletal: Normal strength, ROM intact and No edema Skin: Warm, Dry and Normal color Neurological: Sensation intact, Motor intact, Reflexes intact, Cranial nerves intact and Oriented Psychiatric: Affect appropriate and Mood appropriate (1) Abnormal ECG: Status: Acute Code(s): R94.31 - Abnormal electrocardiogram [ECG] [EKG] SNOMED Code(s): 969181141 (2) Kidney calculus: Status: Acute Code(s): N20.0 - Calculus of kidney SNOMED Code(s): 31129283 Reason for Hospitalization: this patient was seen in the ed by dr serrano and he felt the patient needed obs due to an abnormal ekg. the patient was asymptomatic in terms of cardiac symptoms and had passed a ureteral stone on the way to the [facility]. Prognosis/Condition at Discharge: good Medications at Discharge: Ambulatory Orders Medication Instructions Recorded alprazolam 1 mg tablet 1 mg PO TID PRN 01/22/22 carisoprodol 350 mg tablet 350 mg PO QID PRN 01/22/22 fenofibrate nanocrystallized 145 145 mg PO DAILY 01/22/22 mg tablet fluoxetine 20 mg capsule (Prozac) 20 mg PO DAILY 01/22/22 methadone 10 mg tablet 70 mg PO BID 01/22/22 olanzapine 15 mg tablet 15 mg PO BEDTIME 01/22/22 pregabalin 100 mg capsule 100 mg PO BID PRN 01/22/22 temazepam 30 mg capsule 30 mg PO BEDTIME 01/22/22 linaclotide 145 mcg capsule 145 mcg PO DAILY 01/23/22 (Linzess) Lab/Diagnostics: noted neg cardiac enzymes --- Education Provided to Patient and Family: patient educated on kidney stones. Follow-ups: this week with his pcp Discharge Disposition: Home Hospital Course: the patient was seen by dr limon. He felt the ekg changes were "nonspecific". He told me verbally his echo was normal and he did not plan on further testing. Since the patient had passed the stone and was now asymptomatic, he was di sharged home. Plan: he will follow up with his pcp for stone analysis. the total time for preparing his discharge was 15min.
[2022-01-23] MEDS ORDERED: ASPIRIN CHEWABLE PO ONE (17:00)
[2022-01-24 11:14] LABS: FREE THYROXINE INDEX 2.5 (1.2-4.9); THYROXINE (T4) 8.7 ug/dL (4.5-12.0); TSH 0.711 uIU/mL (0.450-4.500)
--- NOTE | 2022-01-24 11:36 | ECHO2D ---
Date of Exam: 01/23/2022 Ordering Physician: HOSPITALIST--ELISABET/CONSULT DR. OCHOA/PRIMARY PHYSICIAN [facility] Room #: 103 Reason for Echo: BRADYCARDIA/ ABNORMAL EKG M-Mode Normal Adult Results LV Dimensions Normal Adult Results AoV Opening excursions >1.6 > 1.6 LVEDD-base- 3.5-5.8 4.8 Ao root dimensions 2.0-3.7 3.3 LVESD-base- 3.1-4.6 L. Atrium dimensions 1.9-3.8 3.9 Post. Wall thickness 0.8-1.1 1.1 IV septum (thickness) 0.7-1.2 1.2 Post. Wall excursion 0.72-1.3 NORMAL Septal motion NORMAL Systolic motion R. Ventricular cavity 1.5-2.0 NORMAL LVEF 60% 66% Paradoxical septal wall motion NORMAL 2-D : 2-D M Mode Echocardiogram was performed using apical four chamber and left parasternal long and short axis views. Mitral, tricuspid and aortic valves appear to be normal. Contractility of the left ventricle seems to be normal, so is the cavity size. Left atrial cavity size and aortic root appear to be normal. MILD TO TRACE PERICARDIAL EFFUSION. There is no thrombus noted in the left ventricle or left atrial cavity. M-MODE: MV: NORMAL AV: NORMAL TV: NORMAL PV: CHAMBER SIZE: NORMAL WALL MOTION: NORMAL PERICARDIUM: TRACE TO MILD PERICARDIAL EFFUSION INTERPRETATION: 1. BORDERLINE LEFT VENTRICLE HYPERTROPHY 2. NORMAL VALVES 3. NORMAL LEFT VENTRICLE CONTRACTILITY AND SIZE OF LEFT VENTRICLE 4. TRACE TO MILD PERICARDIAL EFFUSION MTDD
--- NOTE | 2022-01-25 14:37 | CONS ---
DATE OF CONSULTATION: 01/23/22 REASON FOR CONSULTATION: Abnormal EKG HISTORY OF PRESENT ILLNESS: 41 year old white male hospitalized under hospitalist, Dr. Romo because of nephrolithiasis which seems to be symptomatic. The patient had an EKG done which was routinely EKG which showed some ST-T wave changes in AVAF and some lateral leads. The patient had three EKGs so far and they are practically unchanged. No acute changes noted. The patient's primary care is Molly Bowie in the [facility] attached to [facility] REVIEW OF SYSTEMS: CONSTITUTIONAL: No night sweats. No fatigue, malaise, lethargy. No fever or chills. HEENT: Eyes: No visual changes. No eye pain. No eye discharge. ENT: No sinus drainage. No epistaxis. No sinus pain. No sore throat. No odynophagia. No ear pain. No congestion. RESPIRATORY: No cough, no congestion. No hemoptysis. No shortness of breath. CARDIOVASCULAR: No angina symptoms. No CHF symptoms. No atypical chest pain for CAD. No palpitations. No orthopnea. GASTROINTESTINAL: Abdominal pain lower quadrant for past few days. No nausea or vomiting. No diarrhea or constipation. No hematemesis. No hematochezia. GENITOURINARY: No urgency. No frequency. No dysuria. No hematuria. No obstructive symptoms. No discharge. No pain. No significant abnormal bleeding. MUSCULOSKELETAL: No musculoskeletal pain. No joint swelling. NEUROLOGICAL: No headache. No neck pain. No syncope. No seizures. No dizziness. PSYCHIATRIC: Not anxious. No depression. No suicidal thoughts. No homicidal thoughts. SKIN: No rash. No lesions. No wounds. ENDOCRINE: No unexplained weight loss. No weight gain. HEMATOLOGIC/LYMPHATIC: No anemia. No purpura. No petechiae. No prolonged or excessive bleeding. No palpable lymph nodes. MEDICATIONS: Xanax Fenofibrate Fluoxetine Linaclotide Methadone Olanzapine Lyrica Temazepam ALLERGIES: None SOCIAL/PERSONAL/FAMILY HISTORY: The patient lives in [place] by himself. Smokes off and on. Denies of any drug abuse. Does all activity of daily living. PHYSICAL EXAMINATION: GENERAL: The patient is oriented to time, place and person. VITAL SIGNS: Temperature 97, pulse 54, respiratory rate 16, blood pressure 91/58 and pulse ox 94% on room air. HEENT: Head normocephalic, atraumatic. Eyes: Extraocular muscles are intact. Pupils are equal, round and reactive to light and accommodation. Ears: No lesions. Nose appeared normal. Throat: No exudate or erythema. NECK: Supple. No JVD, no carotid bruit. No lymphadenopathy or thyromegaly. LUNGS: Clear to auscultation. Percussion note normal. Chest symmetrical. HEART: S1, S2, no S3. No murmurs. No cyanosis or clubbing. No ascites. Pulses: Dorsalis pedis and posterior tibial pulses +1 to +2 bilaterally. ABDOMEN: Soft. Nontender. Bowel sounds active. No CVA tenderness. No mass felt. EXTREMITIES: No edema. Full range of motion of all extremities, equal. NEUROLOGIC: No focal deficit. Cranial nerves II through XII are grossly intact. No headache, no double vision or headache. SKIN: Not dry. Intact. Turgor - normal. LYMPHATIC: No palpable lymph nodes/no lymphedema. MUSCULOSKELETAL: Normal joints with no swelling. Muscle tone is normal. LABS: HGb 11.8, hct 36, WBC 9,800 normal differential, creatinine 1, BUN 13, potassium 3.8. HDL is 32, LDL 99, Cholesterol 155, T4 within normal range. TSH pending. Troponin negative. COVID 19 negative. EKG sinus rhythm nonspecific ST-T wave changes or strain pattern noted in the AVF AVL maybe lateral precordial leads. Echocardiogram was done which showed normal LV contractility, borderline LVH, normal valves, Trace to mild pericardial effusion. ASSESSMENT: 1. Abnormal EKG which seems to be nonspecific or strain pattern. No acute changes noted. All three EKG unchanged. 2. Family history of heart disease, father had heart problem 3. Mild dyslipidemia treated with Fenofibrate, LDL within normal range, HDL is low, cholesterol is low 4. Smoking 5. Nephrolithiasis 6. Depression 7. Generalized anxiety disorder RECOMMENDATIONS: 1. Echo already done which showed borderline LVH and trace to mild pericardial effusion 2. The patient should have repeat echo within a year because of presents of pericardial effusion which is really trace to mild 3. The patient does not have any symptoms of coronary insufficiency, CHF 4. Counseling for smoking done 5. At present time there is no indication of stress test in this patient. 6. Case discussed with Dr. Radford. The patient is stable according to his cardiovascular system. CONSULT NOTE: LEVEL 5 MTDD
== END 2022-01-23 13:11 | disposition home or self-care (01) ==
LOC: EDBD → ED 18:10 → MEDSURG A 18:10
PROVIDERS: ADMIT Emergency Medicine; ATTEND Family Medicine
DX: Z72.0 Tobacco use; N20.0 Calculus of kidney; M79.10 Myalgia, unspecified site; Z20.822 Contact with and (suspected) exposure to COVID-19; R94.31 Abnormal electrocardiogram [ECG] [EKG]